=== PATIENT | male | born 1995 | race Caucasian/White ===

== ENCOUNTER 2017-11-29 04:37 | Emergency (ER) | payer OTHER ==
[2017-11-29 04:59] VITALS: O2SAT 100; BMI 28.8
[2017-11-29] MEDS ORDERED: Propofol 10 mg/ml Inj (20 ML) ONE (05:08)
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
[2017-11-29] MEDS: Sodium Chloride 0.9% 1,000 ML IV STA (06:03)
[2017-11-29] MEDS: Propofol 10 mg/ml Inj (20 ML) IV ONE (06:04)
[2017-11-29 06:53] VITALS: RESP 16
[2017-11-29 06:54] VITALS: BP 122/68; PULSE 76; TEMP 98.1
--- NOTE | 2017-11-29 08:18 | RAD ---
PROCEDURE: Radiographs of the Left Shoulder HISTORY: post-reduction COMPARISON: 11/29/2017 5:05 FINDINGS: BONES: No appreciable fracture after reduction. No AC joint widening. JOINTS: Since the prior examination has been interval reduction of anterior dislocation. Humerus appears to lie within normal position adjacent to the bony glenoid. SOFT TISSUES: Normal. OTHER FINDINGS: None. IMPRESSION: Status post reduction of previously seen left shoulder dislocation.
--- NOTE | 2017-11-29 08:22 | RAD ---
PROCEDURE: Radiographs of the Left Shoulder HISTORY: possible shoulder disolcation COMPARISON: No prior. FINDINGS: BONES: Normal. No fracture. No appreciable Hill-Sachs deformity although limited by overlying bony glenoid. JOINTS: Anterior shoulder dislocation. SOFT TISSUES: Normal. OTHER FINDINGS: None. IMPRESSION: Left shoulder dislocation.
== END 2017-11-29 07:00 | disposition home or self-care (01) ==
LOC: H.ER 04:37
DX: S43.015A Anterior dislocation of left humerus, initial encounter (principal); Y93.9 Activity, unspecified
CPT/HCPCS: 23650; 73030; 96361; 96374; 99282; J2704; J7040